=== PATIENT | female | born 1995 | race African-American/Black ===

== ENCOUNTER 2018-10-23 21:35 | Emergency (ER) | payer OTHER ==
[~2018-10-23] VITALS: Ht 162.6 cm; Wt 53.1 kg
[2018-10-23 21:40] VITALS: BP 119/82
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
[2018-10-23] MEDS ORDERED: IBUPROFEN600 MG ORAL (22:01)
[2018-10-23 22:10] VITALS: BP 122/78
--- NOTE | 2018-10-23 22:10 | NUR ---
ER DISCHARGE NOTE: Patient is cleared to be discharged per ERMD, pt is aox4, on room air, with stable vital signs. pt was given dc and prescription instructions, pt was able to verbalize understanding, pt id band removed without complications. pt is able to ambulate with steady gait. pt took all belongings.
--- NOTE | 2018-10-24 12:33 | Diagnostic Imaging Report ---
Indication: Pain Knee pain/trauma 3 views of the right knee were obtained. Findings: No acute fracture, malalignment, or joint effusion are identified. There may be narrowing of the medial compartment of the knee which is mild in degree. There is no joint effusion. Impression: Negative for acute findings.
--- NOTE | 2018-10-24 12:34 | Diagnostic Imaging Report ---
INDICATION: Knee Pain COMPARISON: None 3 views of the left knee were obtained. FINDINGS: No acute fracture, malalignment, or joint effusion are identified. Joint space is relatively well-maintained. Impression: Negative for acute injury
== END 2018-10-23 22:10 | disposition home or self-care (01) ==
LOC: EMR 21:53
DX: S83.92XA Sprain of unspecified site of left knee, initial encounter (principal); S83.91XA Sprain of unspecified site of right knee, initial encounter; V03.10XA Pedestrian on foot injured in collision with car, pick-up truck or van in traffic accident, initial encounter; Y92.410 Unspecified street and highway as the place of occurrence of the external cause
CPT/HCPCS: 99284